=== PATIENT | female | born 1945 | race Caucasian/White ===

== ENCOUNTER 2020-06-12 10:07 | Inpatient (IN) | payer OTHER ==
[~2020-06-12] VITALS: Ht 154.9 cm; Wt 76.7 kg
--- NOTE | 2020-06-12 10:09 | NUR ---
RECEIVED PT TO BED ORTHO, PT BIBA C/O EPISODE OF SHARP L UPPER CHEST PAIN RADIAITING TO "LEFT ARMPIT. WHILE GETTING MY THINGS READY TO TAKE A SHOWER AT ABOUT 8AM. I TOOK MY OWN NITRO AT ABOUT 8:10 AM, AND THE NURSES GAVE ME ASPIRIN IN THE TRIAGE AREA." PT IN NAD. PLACED ON FULL CM.
--- NOTE | 2020-06-12 10:11 | NUR ---
EKG IN PROGRESS.
[2020-06-12 10:12] VITALS: Ht 154.9 cm; Wt 76.7 kg
--- NOTE | 2020-06-12 10:25 | NUR ---
DR GRACE AT BEDSIDE FOR MSE.
--- NOTE | 2020-06-12 11:14 | NUR ---
SPOKE WITH NURSE UNGER FROM [facility], STS 325MG PO ASA WERE GIVEN TO PT AT [facility], PT TOOK NITRO FOR PAIN, AND PAIN RESOLVED. STS LAST CARDIAC APPT S/P CABG WAS "THIS PAST FEBRUARY", ALSO REPORTS, PER PT CP OCCURS AFTER ACTIVITY. ALSO REPORTS A 70% EJECTION FRACTION, STS HE WILL FAX PT'S REPORTS FROM CARDIOLOGY APPOINTMENT TO [facility] FOR DR GRACE. DR GRACE AWARE.
--- NOTE | 2020-06-12 12:22 | NUR ---
URINE DIP RESULTS REPORTED TO DR GRACE.
--- NOTE | 2020-06-12 17:32 | NUR ---
REPORT GIVEN TO JAZZY SAMUELS, ALL QUESTIONS AND CONCERNS ADDRESSED, TO ASSUME CARE OF PT UPON ARRIVING TO TELE UNIT.
--- NOTE | 2020-06-12 17:48 | NUR ---
RECEIVED PT FROM ED NURSE VIA [place]. PT AAOX4, AMBULATORY. NO ACUTE DISTRESS NOTED. DENIES CP AND PRESSURE AT THIS TIME. IV TO RAC SALINE LOCKED, NO S/S OF INFILTRATION AT THIS TIME. ON RA, NO SOB OR COUGHING NOTED. DENIES N/V/D/ABD DISCOMFORT. DENIES DYSURIA. BRP. SKIN INTACT. PT HAS ALL HER BELONGINGS WITH HER. CALL LIGHT WITHIN REACH, BED IN LOWEST POSITION. WILL ENDORSE TO PROOF SORTER RN.
[2020-06-12 19:04] VITALS: BP 153/62
[2020-06-12 19:40] VITALS: BP 137/47
[2020-06-12] MEDS ORDERED: ASPIRIN FOR CHI81 M1 PO (20:24)
[2020-06-12] MEDS ORDERED: CALCIUM 500-VI1 EACH PO (20:24)
[2020-06-12] MEDS ORDERED: LIPITOR40 MG (20:24)
[2020-06-12] MEDS ORDERED: LASIX20 MG PO (20:25)
[2020-06-12] MEDS ORDERED: LOPRESSOR50 M1 PO (20:25)
[2020-06-12] MEDS ORDERED: FAMOTIDINE20 M1 PO (20:25)
[2020-06-12] MEDS ORDERED: ZESTRIL2.5 MG PO (20:25)
[2020-06-12] MEDS ORDERED: NITROGLYCERIN0.4 MG SL (20:27)
[2020-06-12] MEDS ORDERED: AMO250L8 PO (20:28)
[2020-06-12] MEDS ORDERED: TESSALON PERLE100 MG PO (20:28)
[2020-06-12] MEDS ORDERED: LANTI SQ (20:31)
[2020-06-12] MEDS ORDERED: POLYCARBOPHIL PO (20:31)
[2020-06-12] MEDS ORDERED: MUPIROCIN1 GM TOP (20:33)
[2020-06-12] MEDS ORDERED: TRAMADOL HCL50 MG PO (20:33)
[2020-06-12] MEDS ORDERED: HUMALOG100 U/ML SC (20:33)
--- NOTE | 2020-06-12 22:28 | NUR ---
PT ALERT AND ORIENTED X4, HAS NO C/O CHEST PAIN, LUNG SOUNDS CLEAR, NO WEAKNESS NOTED, SKIN WARM DRY AND INTACT, BOWEL SOUNDS ACTIVE, IV TO RAC INTACT AND PATENT, PT CONTINENT OF BOWEL AND BLADDER, CONTINUES SR WITH BBB ON TELE, NONPITTING EDEMA TO BLE, PT IS A INMATE, CYCLE ANALYST AT BEDSIDE, PT REMAINS STABLE, SAFETY MAINTAINED, WILL CONTINUE TO OBSERVE.
--- NOTE | 2020-06-13 00:54 | NUR ---
PT ALERT, NO C/O CHEST PAIN, NO SIGNS OF DISTRESS NOTED, REMAINS STABLE, SAFETY MAINTAINED, WILL CONTINUE TO OBSERVE.
[2020-06-13 03:20] LABS: CALCIUM 9.7 mg/dL (8.5-10.1); CARBON DIOXIDE 26.2 mmol/L (21-32); CHLORIDE SERUM 107 mmol/L (98-107); CREATININE SERUM 1.1 mg/dL (0.6-1.0); GLUCOSE SERUM 75 mg/dL (74-106); POTASSIUM SERUM 4.7 mmol/L (3.5-5.1); SODIUM SERUM 145 mmol/L (136-145)
[2020-06-13 03:27] LABS: ALBUMIN 3.6 g/dL (3.4-5.0); ALKALINE PHOSPHATASE 76 U/L (46-116); ALT/SGPT 28 U/L (14-59); AST/SGOT 26 U/L (15-37); BILIRUBIN TOTAL 0.4 mg/dL (0.20-1.00); TOTAL PROTEIN, SERUM 7.1 g/dL (6.4-8.2)
--- NOTE | 2020-06-13 05:14 | NUR ---
PT UNEVENTFUL THIS SHIFT NO C/O PAIN, NO SIGNS OF DISTRESS NOTED, CLEANER WALL AT BEDSIDE, REMAINS STABLE NO C/O CHEST PAIN, SAFETY MAINTAINED,WILL CONTINUE TO OBSERVE.
[2020-06-13 05:15] VITALS: BP 146/60
[2020-06-13 06:50] LABS: BASOPHIL % 1.1 % (0.2-1.3); PLATELET COUNT 217 x10^3mcL (179-408)
--- NOTE | 2020-06-13 07:00 | NUR ---
Pt is laying in bed awake, gaurds at bedside. Pt denies chest pain. Pt is speaking in full sentences, no distress noted. Safety will be maintained with bed in low position, wheels locked, call light with in reach and gaurds at bedside.
[2020-06-13 07:07] LABS: RED CELL DISTRIBUTION WIDTH 14.9 % (12.3-17.7)
[2020-06-13 08:23] VITALS: BP 152/63
[2020-06-13 08:55] LABS: CALCIUM 9.1 mg/dL (8.5-10.1); CARBON DIOXIDE 23.6 mmol/L (21-32); CHLORIDE SERUM 108 mmol/L (98-107); CREATININE SERUM 0.9 mg/dL (0.6-1.0); GLUCOSE SERUM 82 mg/dL (74-106); POTASSIUM SERUM 4.1 mmol/L (3.5-5.1); SODIUM SERUM 142 mmol/L (136-145)
[2020-06-13 11:45] VITALS: BP 138/50
[2020-06-13 14:03] LABS: BASOPHIL % 1.2 % (0-2); PLATELET COUNT 242 x10^3mcL (130-400); RED CELL DISTRIBUTION WIDTH 14.9 % (11.5-14.5)
[2020-06-13 17:21] VITALS: BP 137/45
--- NOTE | 2020-06-13 20:00 | NUR ---
RECEIVEDPT I BED RESTING COMFORTABLY WITH EYES CLOSED.EASILY AROUSABLE, A/O X4 ABLE TO FOLLOW COMMANDS, ABLE TO MAKE NEEDS KNOWN, SPEECH CLR, NO VENTURA OR DIZZINESS AT THIS TIME. LUNG SOUNDS CLR LION, NO ACUTE RESP DISTRESS, RESP EVEN AND UNLABORED. ON TELE 18, DENIES CHEST PAIN AT THIS TIME. RADIAL AND PEDAL PULSES PRESENT, NO EDEMA NOTED. ABD ROUND AND SOFT, ACTIVE BSPRESENT X4, NO NVD, VOIDS FREELY, NO REPORTED DICOMFORT. SKIN IS WARM AND DRY, IV SITE TO THE RH PATENT AND FLUSHING WELL. BED TO LOWEST POSITION, CALL LIGHT WITHIN REACH, WILL CONT TO MONITOR, CIM OFFICER AT BED SIDE.
[2020-06-13 20:32] VITALS: BP 129/55
--- NOTE | 2020-06-13 21:20 | NUR ---
RECEIVED NEW ORDER RU BUTTS. NEW ORDER NOTED AND CARRIED OUT.
--- NOTE | 2020-06-13 22:21 | NUR ---
SPOKE WITH [place] REMINDING REGARDING PT'S SCHEDLED STRESS TEST AT 1:30PM,[employer] SALES TIME AT 1:00 PM. PER MICHELE INSTRUCTION, PT MAYHAVE LIGHT BREAKFAST, HOLD LUNCH NO CAFFEINE, HOLD BETABLOCKER MEDS, AND OUBLE CHECK WITH DR. ZAFAR JOHN PAUL MORNING 06/14 IF LASIX AND OTHER HTN MEDS IS OK TO GIVE. WILL ENDORSE TO AM SHIFT NURSE.
--- NOTE | 2020-06-14 02:11 | NUR ---
PT IN AWAKE SITTING ON THE EDGEOF HERBED.NO C/OPAIN, NO ACUTE RESP DISTRESS NOTED. 2 CIM OFFICERS AT BED SIDE. CONT TO PROVIDE FREQUENT VISUAL MONITORING.BED TO LOWEST POSITION CALL LIGHT WITHIN REACH, WILL CONT TO MONITOR.
[2020-06-14 05:55] VITALS: BP 143/53
--- NOTE | 2020-06-14 06:53 | NUR ---
PT INBED AWAKE RESTING COMFORTABLY. NO C/O PAIN,NO ACUTE RESP DISTRESS NOTED. RES IS EVEN AND UNLBAORED, NEEDS ATTENDED AND MET, FREQUENT VISUAL MONITORING RENDERED. DENIES CHEST PAIN AT THIS TIME. FOR STRESS TEST AT 1:30 PM, P/U TIME AT 1:00, PER [facility] INST,PT MAY HAVE LIGHT BREAKFAST, NO CAFFEINE, HOLD LUNCH, NO BETABLOCKER AND DOUBLE CHECK WITH DR. ZAFAR IF PRINVIL AND LASIX IS OK TO GIVE MORNNG DOSE. BED TO LOWEST POSITION, CALL LIGHT WITHIN REACH WILL CONT TO MONITOR AND ENDORSE TO NEXT SHIFT NURSE.
--- NOTE | 2020-06-14 07:15 | NUR ---
Pt is awake in her bed with june at the bedside. Pt is speaking in complete sentences and denies chest pain. Pt is preparing for her stress test today. Pt verbalizes understanding of eating a light breakfast without coffee and then being NPO at lunch time. VS have been stable, pt denies any distress. Safety will be maintained with upper siderails up, bed in low position, wheels locked, non-slip socks on and call light within reach. Will continue to monitor and assess.
[2020-06-14 09:21] VITALS: BP 139/66
[2020-06-14 12:22] VITALS: BP 141/58
--- NOTE | 2020-06-14 12:42 | NUR ---
Pt is heading down to have her stress test done.
[2020-06-14 15:53] VITALS: BP 125/55
[2020-06-14 17:46] VITALS: BP 125/55
--- NOTE | 2020-06-14 18:09 | NUR ---
Pt is getting ready for discharge. Pt is AOX4 and is speaking in complete sentences. No distress noted. Gaurds are at bedside setting up transportation. Pt verbalized discharge instructions and education. Pt will be transported back to the [facility]. Safety was maintained and needs were addressed when they arose.
--- NOTE | 2020-06-14 19:40 | NUR ---
PT RESTING IN BED COMFORTABLY. NO SOB ON ROOM AIR. NO C/O PAIN. NO IV. TELE MONITOR RETURNED TO SALES DEPARTMENT MANAGER BY DAY SHIFT RN. TO BE DISCHARGED. WAITING FOR TRANSPORTATION. PT AND CIM GUARDS AWARE. SAFETY MEASURES IN PLACE. CALL LIGHT WITHIN REACH.
--- NOTE | 2020-06-14 20:14 | NUR ---
PT DC BACK TO [facility] ACCOMPANIED BY CIM GUARDS X2. NO DISTRESS NOTED. DISCHARGE PAPER GIVEN.
== END 2020-06-14 20:44 | DRG 303 ==
LOC: ED 10:07 → DU 13:55 → ED 17:32 → DU 06-14 20:44
PROVIDERS: Emergency Medicine; ADMIT Internal Medicine; ATTEND Internal Medicine
DX: I25.119 Atherosclerotic heart disease of native coronary artery with unspecified angina pectoris (principal); I12.9 Hypertensive chronic kidney disease with stage 1 through stage 4 chronic kidney disease, or unspecified chronic kidney disease; N18.30 Chronic kidney disease, stage 3 unspecified; G89.29 Other chronic pain; M81.0 Age-related osteoporosis without current pathological fracture; E78.5 Hyperlipidemia, unspecified; E21.3 Hyperparathyroidism, unspecified; R73.03 Prediabetes; Z20.822 Contact with and (suspected) exposure to COVID-19; Z95.1 Presence of aortocoronary bypass graft
CPT/HCPCS: 82962; 83880; A9500; G0378; J1815; J2060; J2785